=== PATIENT | male | born 1975 | race American Indian/Alaskan Native ===

== ENCOUNTER 2017-10-31 11:23 | Inpatient (IN) | payer MEDICAID, MEDICARE, OTHER ==
[2017-10-31 11:32] VITALS: BMI 26.9
--- NOTE | 2017-10-31 12:03 | ED PDOC ---
Arrival/HPI - General Chief Complaint: Psychiatric Evaluation Time Seen by Provider: 10/31/17 11:56 Historian: Patient - History of Present Illness Narrative History of Present Illness (Text): 10/31/17 11:59 pt p/w + worsening anxiety and stress since unable to obtain his medication for the last 1 month; pt states he usually attends day care program from [facility] but was kicked out of the program last month; pt states he feels pressure and jittery; pt states no fever/chills/sweats, no cp/sob/ palpitations, no abd pain, no n/v, no numbness/tingling, no urinary/bowel changes; pt has been self medicating with street drugs (Marijuana); pt denied loc, no fall/trauma/sick contact, no travel; pt denied other complaints; pt is here for further eval. pt denied SI/HI, pt denied hallucinations - visual/tactile/auditory Time/Duration: < month Symptom Onset: Gradual Symptom Course: Worsening Severity Level: Severe Context: Home (pt states he has places to go home to but occasionally is homeless) Past Medical History - Provider Review Nursing Documentation Reviewed: Yes - Travel History Have you recently traveled outside US w/in the past 3 mons?: No - Past History Past History: No Previous - Infectious Disease Hx of Infectious Diseases: None - Tetanus Immunization Tetanus Immunization: Unknown - Cardiac Hx Hypertension: Yes - Pulmonary Hx Asthma: Yes - Neurological Hx Seizures: Yes (since he was 11 yo) - HEENT Hx HEENT Disorder: No - Renal Hx Renal Disorder: No - Endocrine/Metabolic Hx Endocrine Disorders: No - Hematological/Oncological Hx Cancer: No - Integumentary Hx Dermatological Disorder: No - Musculoskeletal/Rheumatological Hx Musculoskeletal Disorders: No - Gastrointestinal Hx Gastrointestinal Disorders: No - Genitourinary/Gynecological Hx Sexually Transmitted Diseases: No - Psychiatric Hx Anxiety: Yes Hx Bipolar Disorder: Yes Hx Depression: Yes Hx Schizophrenia: Yes Hx Substance Use: Yes - Surgical History Other/Comment: unable to assess due to psychotic behavior - Anesthesia Hx Anesthesia: No Hx Anesthesia Reactions: No Hx Malignant Hyperthermia: No - Suicidal Assessment Feels Threatened In Home Enviroment: No Family/Social History - Physician Review Nursing Documentation Reviewed: Yes Family/Social History: No Known Family HX Smoking Status: Heavy Smoker > 10 Cigarettes Daily Hx Alcohol Use: No Hx Substance Use: Yes Substance used: marijuana Hx Substance Use Treatment: No Allergies/Home Meds Allergies/Adverse Reactions: Allergies No Known Allergies Allergy (Verified 10/31/17 06:53) Home Medications: Home Meds Medication Instructions Recorded Confirmed No Known Home Med 10/31/17 10/31/17 Review of Systems - Review of Systems Constitutional: Normal Eyes: Normal ENT: Normal Respiratory: Normal Cardiovascular: Normal Gastrointestinal: Normal Genitourinary Male: Normal Musculoskeletal: Normal Skin: Normal Neurological: Normal Endocrine: Normal Hemo/Lymphatic: Normal Psychiatric: Anxiety, Depression. absent: Suicidal Ideation Physical Exam Vital Signs Reviewed: Yes Vital Signs Temp Pulse Resp BP Pulse Ox 10/31/17 17:24 83 18 154/75 H 99 10/31/17 15:20 86 18 155/45 H 10/31/17 11:24 98.3 F 117 H 18 155/89 H 98 Temperature: Afebrile Blood Pressure: Hypertensive Pulse: Tachycardic Respiratory Rate: Normal Appearance: Positive for: Well-Appearing, Other (pt is resting in bed, NAD, + anxious, + jitttery appearing, cooperative, alert/awake, GCS = 15, oriented x 3 , follows commands with ease) Pain Distress: None Mental Status: Positive for: Alert and Oriented X 3 - Systems Exam Head: Present: Atraumatic, Normocephalic Pupils: Present: PERRL Extroacular Muscles: Present: EOMI Conjunctiva: Present: Normal Ears: Present: Normal Mouth: Present: Moist Mucous Membranes, Normal Teeth Pharnyx: Present: Normal, Other (no drooling/stridor, no exudate/lesions, uvula/ tongue are midline, no dysphonia) Nose (External): Present: Atraumatic Nose (Internal): Present: Normal Inspection Neck: Present: Normal Range of Motion, Trachea Midline. No: MIDLINE TENDERNESS Respiratory/Chest: Present: Clear to Auscultation, Good Air Exchange, Other ( CTA b/l, no w/r/r, no accessory muscle use, no tachypenia) Cardiovascular: Present: Regular Rate and Rhythm, Normal S1, S2 Abdomen: Present: Normal Bowel Sounds, Other (well nourished male, no focal tenderness, no pool's sign, no mcburney's point tenderness) Back: Present: Normal Inspection. No: Midline Tenderness Upper Extremity: Present: Normal Inspection, Normal ROM, NORMAL PULSES, Neurovascularly Intact, Capillary Refill < 2s, Other (moving all limbs with ease ) Lower Extremity: Present: Normal Inspection, NORMAL PULSES, Normal ROM, Neurovascularly Intact, Capillary Refill < 2 s Neurological: Present: GCS=15, CN II-XII Intact, Speech Normal, Other (NIH stroke scale ~0) Skin: Present: Warm, Normal Color, Other (cap refill < 1sec, no ulcerations, no petechiae) Psychiatric: Present: Alert, Oriented x 3 Medical Decision Making ED Course and Treatment: 10/31/17 12:07 Impression: schizoaffective d/o; severe anxiety, medication non-compliance i have consider all the differential diagnosis regarding pt's chief medical complaints/clinical findings, including but are not limited to: severe anxiety, medication non-compliance A/P: schizoaffective d/o, severe anxiety, mediation non-compliance - labs - ekg - xray - ua - observe - supportive care - crisis/PES eval 10/31/17 17:48 PT IS MEDICALLY CLEARED FOR PSYCH EVAL 3:00pm - PES/crisis evaluated patient, will consult with psychiatry 3:45pm - crisis will admit patient to psych pt is currently stable pt is made aware of his medical results agrees with admission Re-evaluation Time: 16:30 Reassessment Condition: Unchanged - Lab Interpretations Lab Results: 10/31/17 12:50 10/31/17 12:50 Lab Results 10/31/17 12:50: Alcohol, Quantitative < 10 10/31/17 12:50: Salicylates < 1 L, Acetaminophen < 10.0 L 10/31/17 12:50: Urine Opiates Screen Negative, Urine Methadone Screen Negative, Ur Barbiturates Screen Negative, Ur Phencyclidine Scrn Negative, Ur Amphetamines Screen Negative, U Benzodiazepines Scrn Negative, U Oth Cocaine Metabols Negative, U Cannabinoids Screen Negative 10/31/17 12:50: Sodium 143, Potassium 3.9, Chloride 107, Carbon Dioxide 22, Anion Gap 17, BUN 13, Creatinine 0.9, Est GFR ( Amer) > 60, Est GFR (Non- Af Amer) > 60, Random Glucose 104, Calcium 9.5, Total Bilirubin 0.6, AST 38, ALT 39, Alkaline Phosphatase 77, Total Protein 8.2, Albumin 4.2, Globulin 4.0, Albumin/Globulin Ratio 1.1 10/31/17 12:50: Urine Color Yellow, Urine Appearance Clear, Urine pH 6.5, Ur Specific [place] 1.020, Urine Protein Negative, Urine Glucose (UA) Negative, Urine Ketones 15 H, Urine Blood Negative, Urine Nitrate Negative, Urine Bilirubin Small H, Urine Urobilinogen 1.0 H, Ur Leukocyte Esterase Negative 10/31/17 12:50: WBC 8.6 D, RBC 4.38, Hgb 13.3 L, Hct 39.8 L, MCV 90.9, MCH 30.4 , MCHC 33.4, RDW 12.7, Plt Count 210, MPV 9.8, Gran % 53.6, Lymph % (Auto) 37.0 H, [place] % (Auto) 9.0 H, Eos % (Auto) 0.3 L, Baso % (Auto) 0.1, Gran # 4.61, Lymph # 3.2, [place] # 0.8 H, Eos # 0.0, Baso # 0.01 I have reviewed the lab results: Yes Interpretation: All labs normal - RAD Interpretation Narrative RAD Interpretations (Text): 10/31/17 13:44 CHEST X-RAY Dictator : Reny Wiggins MD Report Date : 10/31/2017 13:28:55 IMPRESSION: No active pulmonary disease. 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 Ulcer: No History Surgical Site Infection Following: None - Disposition Have Diagnosis and Disposition been Completed?: Yes Diagnosis: Severe anxiety, Noncompliance with medication regimen Disposition: HOSPITALIZED Disposition Time: 17:30 Patient Plan: Admission Condition: STABLE Referrals: [facility], [Primary Care Provider] - Follow up with primary Forms: Combat Stroke (Divehi)
[2017-10-31 12:56] LABS: BASO # 0.01 K/mm3 (0.0-2.0); BASO % 0.1 % (0.0-3.0); EOS % 0.3 % (1.5-5.0); GRAN # 4.61 (1.4-6.5); GRAN % 53.6 % (50.0-68.0); HEMOGLOBIN 13.3 g/dL (14.0-18.0); LYMPH # 3.2 (1.2-3.4); MEAN CELL VOLUME 90.9 fl (80.0-105.0); MEAN CORPUSCULAR HEMOGLOBIN 30.4 pg (25.0-35.0); MEAN CORPUSCULAR HGB CONC 33.4 g/dl (31.0-37.0); MEAN PLATELET VOLUME 9.8 fl (7.0-11.0); MONO # 0.8 (0.1-0.6); RBC 4.38 10^6/uL (3.5-6.1); RED CELL DISTRIBUTION WIDTH 12.7 % (11.5-14.5); WHITE BLOOD COUNT 8.6 10^3/ul (4.5-11.0)
[2017-10-31 12:57] LABS: PH,URINE 6.5 (4.7-8.0); URINE BILIRUBIN SMALL (NEGATIVE); URINE BLOOD NEGATIVE (NEGATIVE); URINE GLUCOSE (UA) NEGATIVE (NEGATIVE); URINE LEUKOCYTE ESTERASE NEGATIVE Leu/uL (NEGATIVE); URINE NITRATE NEGATIVE (NEGATIVE); URINE PROTEIN NEGATIVE mg/dL (<30 mg/dL)
[2017-10-31 13:00] LABS: URINE APPEARANCE CLEAR (CLEAR); URINE COLOR YELLOW (YELLOW)
[2017-10-31 13:08] LABS: ACETAMINOPHEN < 10.0 ug/ml (10.0-20.0); ALB/GLOB RATIO 1.1 (1.1-1.8); ALBUMIN 4.2 g/dL (3.0-4.8); ALT/SGPT 39 U/L (7-56); AST/SGOT 38 U/L (17-59); BLOOD UREA NITROGEN 13 mg/dL (7-21); CALCIUM 9.5 mg/dL (8.4-10.5); GFR AFRICAN-AMERICAN > 60; GFR NON-AFRICAN AMERICAN > 60; SALICYLATE < 1 mg/dL (2.0-20.0)
[2017-10-31 13:20] LABS: BARBITURATES, UR NEGATIVE (NEGATIVE); BENZODIAZEPINES, UR NEGATIVE (NEGATIVE); OPIATES, UR NEGATIVE (NEGATIVE); PHENCYCLIDINE, UR NEGATIVE (NEGATIVE)
--- NOTE | 2017-10-31 13:30 | RAD ---
HISTORY: COMPARISON: 07/04/2016. TECHNIQUE: Chest PA and lateral FINDINGS: LINES AND TUBES: None. LUNG AND PLEURA: The lungs are well inflated and clear. HEART AND MEDIASTINUM: The heart is not enlarged. The hilar and mediastinal contours are within normal limits. SKELETAL STRUCTURES: The bony structures are within normal limits for the patient's age. VISUALIZED UPPER ABDOMEN: Normal. OTHER FINDINGS: None. IMPRESSION: No active pulmonary disease.
--- NOTE | 2017-10-31 15:46 | CARD ---
APPROVED REPORT EKG Measurement Heart [id number] IN [id number] <Conclusion> Sinus tachycardia Otherwise normal ECG
[2017-10-31 17:52] VITALS: O2SAT 99
[2017-10-31] MEDS: Divalproex 500 mg DR(BID formulation) PO SCH (21:55)
--- NOTE | 2017-11-01 01:36 | PCM.BM ---
Treatment Plan Problems - Problems identified on initial assessmt Problem 1 Date Initiated: 10/31/17 Time Initiated: 20:00 Assessment reference: NA Treatment assets and liabiliti Patient Assests: cooperative, ADL independent, negotiates basic needs, cognitively intact Patient Liabilities: financial problems, poor support system, relationship conflicts, substance abuse, medical problems - Milieu Protocol Maintain good personal hygiene: daily Encourage regular showers, daily Remind patient to perform daily oral care, daily Assist patient to perform ADL's Conduct patient checks and document Observation sheet: Q15 minutes Maintain personal safety: daily Educate patient to report safety concerns to staff, daily Monitor environment for contraband/sharps Medication safety: Monitor for expected outcome, potential side effects: daily, Assess barriers to learning: daily, Assess readiness for medication education: daily Family Contact Family involvement: Family/SO is involved Family contact: Patient agrees to contact
[2017-11-01] MEDS: Divalproex 500 mg DR(BID formulation) PO SCH ×3 (05:08→21:35)
[2017-11-01 08:51] LABS: BLOOD UREA NITROGEN 16 mg/dL (7-21); CALCIUM 8.8 mg/dL (8.4-10.5); GFR AFRICAN-AMERICAN > 60; GFR NON-AFRICAN AMERICAN > 60; HDL CHOLESTEROL 37 mg/dL (29-60)
[2017-11-01 08:58] LABS: LDL CHOLESTEROL 87 mg/dL (0-129)
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
[2017-11-01 12:05] LABS: DILANTIN (PHENYTOIN) 12 ug/mL (10-20)
[2017-11-01 12:07] LABS: VALPROIC ACID 48 ug/mL (50.0-100.0)
--- NOTE | 2017-11-01 17:13 | CP.PCM.CON ---
<MauryHaroldo bridges - Last Filed: 11/01/17 16:34> History of Present Illness - History of Present Illness History of Present Illness: IM Consult Note for Hospitalist Service Consulted for Medical Management This a 41 yo AA M with PMH of Asthma, Anxiety, Bipolar disorder, Depression, HTN , Schizophrenia, and seizure disorder (on dilantin and depakote) who [place] [facility] [place] of worsening stress and anxiety, and reportedly unable to obtain his meds for ~1 month. Per prior charting, pt also has history of substance abuse, xerosis, psoriasis, and frequently poor compliance with medications and follow up. ROS/HPI and physical exam limited due to patient being non-cooperative with exam and interview (lying sideways in bed, reacts to shaking away but refuses to roll over, respond to staff questioning, or follow commands). Yesterday AM, patient was seen for witnessed seizure at [facility] ED, and told them he was out of his medications. He was discharged with Dilantin and told to follow up in 2 days at the clinic or with his PMD. He later presented [place] [facility] for [place]/anxiety, but denied new seizures, or SI/HI. This AM , was witnessed walking and talking in Psych unit, ate breakfast without issue. As per prior charting, uncooperativeness and refusal to speak with interviewing team or participate in physical exam is not uncommon for this patient. PMH: as above PSH: unknown, patient refuses to answer Fam Hx: unknown SHx: has admitted to regularly self-medicating with marijuana previously, refuses to answer during this interview; as per ED note admits tobacco use ( smoking > 1/2 ppd), but denies alcohol use PMD: Unknown physician in [facility] Review of Systems - Review of Systems Systems not reviewed;Unavailable: Uncooperative Past Patient History - Infectious Disease Hx of Infectious Diseases: None - Tetanus Immunizations Tetanus Immunization: Unknown - Past Social History Smoking Status: Heavy Smoker > 10 Cigarettes Daily - CARDIAC Hx Hypertension: Yes - PULMONARY Hx Asthma: Yes - NEUROLOGICAL Hx Seizures: Yes (since he was 11 yo) - HEENT Hx HEENT Problems: No - RENAL Hx Chronic Kidney Disease: No - ENDOCRINE/METABOLIC Hx Endocrine Disorders: No - HEMATOLOGICAL/ONCOLOGICAL Hx Cancer: No - INTEGUMENTARY Hx Dermatological Problems: No - MUSCULOSKELETAL/RHEUMATOLOGICAL Hx Musculoskeletal Disorders: No - GASTROINTESTINAL Hx Gastrointestinal Disorders: No - GENITOURINARY/GYNECOLOGICAL Hx Sexually Transmitted Disorders: No - PSYCHIATRIC Hx Substance Use: Yes (marijuana) - SURGICAL HISTORY Other/Comment: unable to assess due to psychotic behavior - ANESTHESIA Hx Anesthesia: No Hx Anesthesia Reactions: No Hx Malignant Hyperthermia: No Meds Allergies/Adverse Reactions: Allergies Allergy/AdvReac Type Severity Reaction Status Date / Time No Known Allergies Allergy Verified 10/31/17 20:52 - Medications Medications: Current Medications Acetaminophen (Tylenol 325mg Tab) 650 mg PO Q6 PRN PRN Reason: Pain, Mild (1-3) Clonazepam (Klonopin) 1 mg PO AMHS [facility]CI PRN Reason: Protocol Last Admin: 11/01/17 09:24 Dose: 1 mg Divalproex Sodium (Depakote Dr(*Bid*)) 500 mg PO AMHS [facility]CI PRN Reason: Protocol Last Admin: 11/01/17 09:23 Dose: 500 mg Nicotine (Nicoderm Cq) 1 patch TD DAILY [facility] Phenytoin Sodium (Dilantin) 100 mg PO TID [facility] Last Admin: 11/01/17 09:24 Dose: 100 mg Risperidone (Risperdal Tab) 2 mg PO AMHS [facility] Physical Exam - Constitutional Appears: No Acute Distress Additional comments: Limited due to patient non-cooperative with history or exam - Head Exam Head Exam: ATRAUMATIC - Eye Exam Eye Exam: absent: Conjunctival injection, Scleral icterus - ENT Exam ENT Exam: Mucous Membranes Moist - Respiratory Exam Respiratory Exam: Clear to Auscultation Bilateral, NORMAL BREATHING PATTERN. absent: Accessory Muscle Use - Cardiovascular Exam Cardiovascular Exam: REGULAR RHYTHM, RRR, +S1, +S2. absent: Bradycardia, Tachycardia, Irregular Rhythm - GI/Abdominal Exam GI & Abdominal Exam: Soft. absent: Distended, Firm, Rigid, Tenderness - Extremities Exam Extremities exam: Positive for: normal inspection - Neurological Exam Additional comments: previously seen ambulating in Psych unit without difficulty, motor grossly intact and equal in extremities at that time. - Psychiatric Exam Additional comments: unable to assess, pt non-cooperative with exam - Skin Skin Exam: Dry, Intact, Normal Color, Warm Results - Vital Signs Recent Vital Signs: Last Vital Signs Temp 97.7 F 11/01/17 07:43 Pulse 64 11/01/17 07:43 Resp 20 11/01/17 07:43 BP 114/69 11/01/17 07:43 Pulse Ox 99 10/31/17 17:24 - Labs Result Diagrams: 10/31/17 12:50 11/01/17 07:30 Labs: Laboratory Results - last 24 hr 11/01/17 11/01/17 07:30 11:40 Sodium 141 Potassium 3.8 Chloride 109 H Carbon Dioxide 23 Anion Gap 13 BUN 16 Creatinine 0.9 Est GFR ( Amer) > 60 Est GFR (Non-Af Amer) > 60 Random Glucose 94 Calcium 8.8 Triglycerides 58 Cholesterol 153 LDL Cholesterol Direct 87 HDL Cholesterol 37 Phenytoin 12 Valproic Acid 48 L Assessment & Plan - Assessment and Plan (Free Text) Assessment: This a 41 yo AA M with PMH of Asthma, Anxiety, Bipolar disorder, Depression, HTN , Schizophrenia, and seizure disorder (on dilantin and depakote) who presented [place] [facility] [place] complaint of worsening stress and anxiety, and reportedly unable to obtain his meds for ~1 month. Non-cooperative with exam. Plan: 1) Stress/Anxiety/Schizoaffective -defer to psych for management 2) HTN not on BP control -hypertensive to 150's/80's on admission, but since admission to psych unit and starting on psych meds, BP improved to 114/69, so likely stress component to elevated BP on presentation -no noted to be on any antihypertensives at home -no intervention indicated at this time 3) Hx Asthma -no respiratory distress noted, satting well on room air -no intervention indicated at this time -if patient experiences a flare-up, can add PRN albuterol inhaler 4) Seizure disorder -dilantin level wnl, low depakote -continue both as previously ordered 5) Hx of psoriasis -no reported complaints of this on admission -if recurs, would recommend clotrimazole 1% cream BID (used with success with this pt previously) Dispo: Psych inpt FEN: Heart-healthy diet Consult: IM for medical management (Psych is primary) Ppx: Ambulation for DVT At this time, patient is medically stable, will sign off. Please reconsult as necessary. Patient seen, reviewed, and discussed with attending, Dr. Lindsay <Bulmaro Lindsay - Last Filed: 11/01/17 18:21> Meds - Medications Medications: Current Medications Acetaminophen (Tylenol 325mg Tab) 650 mg PO Q6 PRN PRN Reason: Pain, Mild (1-3) Clonazepam (Klonopin) 1 mg PO AMHS [facility]ANCI PRN Reason: Protocol Last Admin: 11/01/17 09:24 Dose: 1 mg Divalproex Sodium (Depakote Dr(*Bid*)) 500 mg PO AMHS [facility] PRN Reason: Protocol Last Admin: 11/01/17 09:23 Dose: 500 mg Nicotine (Nicoderm Cq) 1 patch TD DAILY [facility] Phenytoin Sodium (Dilantin) 100 mg PO TID [facility] Last Admin: 11/01/17 16:45 Dose: Not Given Risperidone (Risperdal Tab) 2 mg PO AMHS [facility] Results - Vital Signs Recent Vital Signs: Last Vital Signs Temp 97.7 F 11/01/17 07:43 Pulse 64 11/01/17 07:43 Resp 20 11/01/17 07:43 BP 114/69 11/01/17 07:43 Pulse Ox 99 10/31/17 17:24 - Labs Result Diagrams: 10/31/17 12:50 11/01/17 07:30 Labs: Laboratory Results - last 24 hr 11/01/17 11/01/17 07:30 11:40 Sodium 141 Potassium 3.8 Chloride 109 H Carbon Dioxide 23 Anion Gap 13 BUN 16 Creatinine 0.9 Est GFR ( Amer) > 60 Est GFR (Non-Af Amer) > 60 Random Glucose 94 Calcium 8.8 Triglycerides 58 Cholesterol 153 LDL Cholesterol Direct 87 HDL Cholesterol 37 Phenytoin 12 Valproic Acid 48 L Attending/Attestation - Attestation I have personally seen and examined this patient.: Yes I have fully participated in the care of the patient.: Yes I have reviewed all pertinent clinical information: Yes Notes (Text): 11/01/17 18:17 Attending note: Patient seen and examined with resident in Psych floor. Patient is a 41 year old male with PMH of Asthma, Anxiety, Bipolar disorder, Depression, HTN, Schizophrenia, and seizure disorder (on dilantin and depakote) who [place] [facility] [place] complaint of worsening stress and anxiety. Currently denies any complaints. Labs reviewed. smoker: smoking cessation is strongly advised. on nicoderm patch. seizure disorder. continue keppra. HTN: currently BP is acceptable not on meds. Dietary education. Patient is medically stable. Please reconsult as needed.
[2017-11-02] MEDS: Divalproex 500 mg DR(BID formulation) PO SCH ×2 (09:24→21:15)
--- NOTE | 2017-11-02 14:46 | PCM.PYCHPN ---
Psychiatric Progress Note - Psychiatric Progress Note Patient seen today, length of contact: 30min Patient Chief Complaint: "when I will be discharged?" Problems Identified/Issues Discussed: Suicide/ homicide prevention, past psychiatric h/o, current psychiatric symptoms , medical problems, risk/benefits and alternatives of medications, medications compliance, coping strategies, substance abuse h/o, relapse prevention, importance of follow up with psychiatrist and therapist, discharge plan. Medical Problems: pt denied any medical issues Diagnostic Results: 10/31/17 12:50 11/01/17 07:30 Lab Results 11/01/17 11:40: Phenytoin 12, Valproic Acid 48 L 11/01/17 07:30: Hemoglobin A1c 6.0 11/01/17 07:30: Sodium 141, Potassium 3.8, Chloride 109 H, Carbon Dioxide 23, Anion Gap 13, BUN 16, Creatinine 0.9, Est GFR ( Amer) > 60, Est GFR (Non- Af Amer) > 60, Random Glucose 94, Calcium 8.8, Triglycerides 58, Cholesterol 153 , LDL Cholesterol Direct 87, HDL Cholesterol 37 10/31/17 12:50: Alcohol, Quantitative < 10 10/31/17 12:50: Salicylates < 1 L, Acetaminophen < 10.0 L 10/31/17 12:50: Urine Opiates Screen Negative, Urine Methadone Screen Negative, Ur Barbiturates Screen Negative, Ur Phencyclidine Scrn Negative, Ur Amphetamines Screen Negative, U Benzodiazepines Scrn Negative, U Oth Cocaine Metabols Negative, U Cannabinoids Screen Negative 10/31/17 12:50: Sodium 143, Potassium 3.9, Chloride 107, Carbon Dioxide 22, Anion Gap 17, BUN 13, Creatinine 0.9, Est GFR ( Amer) > 60, Est GFR (Non- Af Amer) > 60, Random Glucose 104, Calcium 9.5, Total Bilirubin 0.6, AST 38, ALT 39, Alkaline Phosphatase 77, Total Protein 8.2, Albumin 4.2, Globulin 4.0, Albumin/Globulin Ratio 1.1 10/31/17 12:50: Urine Color Yellow, Urine Appearance Clear, Urine pH 6.5, Ur Specific [place] 1.020, Urine Protein Negative, Urine Glucose (UA) Negative, Urine Ketones 15 H, Urine Blood Negative, Urine Nitrate Negative, Urine Bilirubin Small H, Urine Urobilinogen 1.0 H, Ur Leukocyte Esterase Negative 10/31/17 12:50: WBC 8.6 D, RBC 4.38, Hgb 13.3 L, Hct 39.8 L, MCV 90.9, MCH 30.4 , MCHC 33.4, RDW 12.7, Plt Count 210, MPV 9.8, Gran % 53.6, Lymph % (Auto) 37.0 H, Crawford % (Auto) 9.0 H, Eos % (Auto) 0.3 L, Baso % (Auto) 0.1, Gran # 4.61, Lymph # 3.2, Crawford # 0.8 H, Eos # 0.0, Baso # 0.01 10/31/17 12:50 11/01/17 07:30 Lab Results 11/01/17 11:40: Phenytoin 12, Valproic Acid 48 L 11/01/17 07:30: Hemoglobin A1c 6.0 11/01/17 07:30: Sodium 141, Potassium 3.8, Chloride 109 H, Carbon Dioxide 23, Anion Gap 13, BUN 16, Creatinine 0.9, Est GFR ( Amer) > 60, Est GFR (Non- Af Amer) > 60, Random Glucose 94, Calcium 8.8, Triglycerides 58, Cholesterol 153 , LDL Cholesterol Direct 87, HDL Cholesterol 37 10/31/17 12:50: Alcohol, Quantitative < 10 10/31/17 12:50: Salicylates < 1 L, Acetaminophen < 10.0 L 10/31/17 12:50: Urine Opiates Screen Negative, Urine Methadone Screen Negative, Ur Barbiturates Screen Negative, Ur Phencyclidine Scrn Negative, Ur Amphetamines Screen Negative, U Benzodiazepines Scrn Negative, U Oth Cocaine Metabols Negative, U Cannabinoids Screen Negative 10/31/17 12:50: Sodium 143, Potassium 3.9, Chloride 107, Carbon Dioxide 22, Anion Gap 17, BUN 13, Creatinine 0.9, Est GFR ( Amer) > 60, Est GFR (Non- Af Amer) > 60, Random Glucose 104, Calcium 9.5, Total Bilirubin 0.6, AST 38, ALT 39, Alkaline Phosphatase 77, Total Protein 8.2, Albumin 4.2, Globulin 4.0, Albumin/Globulin Ratio 1.1 10/31/17 12:50: Urine Color Yellow, Urine Appearance Clear, Urine pH 6.5, Ur Specific [place] 1.020, Urine Protein Negative, Urine Glucose (UA) Negative, Urine Ketones 15 H, Urine Blood Negative, Urine Nitrate Negative, Urine Bilirubin Small H, Urine Urobilinogen 1.0 H, Ur Leukocyte Esterase Negative 10/31/17 12:50: WBC 8.6 D, RBC 4.38, Hgb 13.3 L, Hct 39.8 L, MCV 90.9, MCH 30.4 , MCHC 33.4, RDW 12.7, Plt Count 210, MPV 9.8, Gran % 53.6, Lymph % (Auto) 37.0 H, Crawford % (Auto) 9.0 H, Eos % (Auto) 0.3 L, Baso % (Auto) 0.1, Gran # 4.61, Lymph # 3.2, Crawford # 0.8 H, Eos # 0.0, Baso # 0.01 DSM 5 Symptoms Update: As per assessment: Patient is a single 41 year old -Americanmale with a long history of Schizoaffective disorder, numerous hospitalizations including [place], poor outpatient adherence as well as poor compliance with medications who presented to our ED with symptoms of anxiety and "feeling stressed". Patient was noted to be disorganized and signed himself in for further stabilization. as per report from , pt was completely refused to engage in an interview with her. pt was seen at the treatment team meeting, pt is very familiar to this unit from multiple previous psychiatric admissions. Pt presented with acceptable personal hygiene, tp seems gain some weight, looks healthy to compare to the previous admissions. acceptable ADLs. pt was not able to provide any information besides that he staid in the [facility] for the past 1year and one month, pt said he was discharged to the boarding home at the [place] but he did not like it there. Pt said he brought himself to the hospital because he has nowhere to go. but based on ED evaluation pt was psychotic, was not taking his meds. pt obviously has difficulties to concentrate, stay focused, was keep repeating the same question over and over again. "when I will be discharged?" pt said he smokes about a pack a day, refused to have nicotine patch. Pt has some resting tremor on RUE, no rigidity. as per staff pt seems to be calm, no behavioral issues. Impression: schizoaffective disorder marijuana abuse Medication Change: No (continued) Medical Record Reviewed: Yes Consults ordered or reviewed: medical consult appreciated Mental Status Examination - Cognitive Function Orientation: Person, Place Memory: Impaired (chronic) Attention: Poor Concentration: Poor Association: WNL Fund of Knowledge: WNL - Mood Mood: Neutral - Affect Affect: Constricted - Speech Speech: Slurred - Formal Thought Process Formal Thought Process: Other (residual symtpoms, disorganized thoughts) - Suicidal Ideation Suicidal Ideation: No - Homicidal Ideation Homicidal Ideation: No Goal/Treatment Plan - Goal/Treatment Plan Need for Continued Stay: Remain at risks for inpatient hospitalization, Severe depression anxiety, Discharge may exacerbated symptoms, Failed transitioning, Severe functional impairment Progress Toward Problem(s) and Goals/Treatment Plan: Milieu/structure/supportive therapy Medical consult appreciated, see medical team note for more detailed info Depakote 500 mg twice a day for mood stabilization Klonopin 1 mg twice a day for anxiety Risperdal 2 mg twice a day for psychosis Dilantin 100 mg 3 times a day for seizures Will add Cogentin because patient had some resting tremor in right upper extremity SW consultation for discharge plan and social issues Med management (specify the name, doses, plan to titrate or wean it off) Family involvement Follow up on labs Will monitor closely Pt was educated about risk/benefits and alternatives of medications, coping strategies (safety plan, suicide prevention), relapse prevention, importance of follow up with psychiatrist and therapist, stay away from drugs/alcohol/smoking Estimated Date of D/C: 11/06/17
[2017-11-03] MEDS: Divalproex 500 mg DR(BID formulation) PO SCH ×2 (09:33→21:31)
--- NOTE | 2017-11-03 14:43 | PCM.PYCHPN ---
Psychiatric Progress Note - Psychiatric Progress Note Patient seen today, length of contact: 30min Patient Chief Complaint: "when I will be discharged?" Problems Identified/Issues Discussed: Suicide/ homicide prevention, past psychiatric h/o, current psychiatric symptoms , medical problems, risk/benefits and alternatives of medications, medications compliance, coping strategies, substance abuse h/o, relapse prevention, importance of follow up with psychiatrist and therapist, discharge plan. Medical Problems: pt denied any medical issues Diagnostic Results: 10/31/17 12:50 11/01/17 07:30 Lab Results 11/01/17 11:40: Phenytoin 12, Valproic Acid 48 L 11/01/17 07:30: Hemoglobin A1c 6.0 11/01/17 07:30: Sodium 141, Potassium 3.8, Chloride 109 H, Carbon Dioxide 23, Anion Gap 13, BUN 16, Creatinine 0.9, Est GFR ( Amer) > 60, Est GFR (Non- Af Amer) > 60, Random Glucose 94, Calcium 8.8, Triglycerides 58, Cholesterol 153 , LDL Cholesterol Direct 87, HDL Cholesterol 37 10/31/17 12:50: Alcohol, Quantitative < 10 10/31/17 12:50: Salicylates < 1 L, Acetaminophen < 10.0 L 10/31/17 12:50: Urine Opiates Screen Negative, Urine Methadone Screen Negative, Ur Barbiturates Screen Negative, Ur Phencyclidine Scrn Negative, Ur Amphetamines Screen Negative, U Benzodiazepines Scrn Negative, U Oth Cocaine Metabols Negative, U Cannabinoids Screen Negative 10/31/17 12:50: Sodium 143, Potassium 3.9, Chloride 107, Carbon Dioxide 22, Anion Gap 17, BUN 13, Creatinine 0.9, Est GFR ( Amer) > 60, Est GFR (Non- Af Amer) > 60, Random Glucose 104, Calcium 9.5, Total Bilirubin 0.6, AST 38, ALT 39, Alkaline Phosphatase 77, Total Protein 8.2, Albumin 4.2, Globulin 4.0, Albumin/Globulin Ratio 1.1 10/31/17 12:50: Urine Color Yellow, Urine Appearance Clear, Urine pH 6.5, Ur Specific [place] 1.020, Urine Protein Negative, Urine Glucose (UA) Negative, Urine Ketones 15 H, Urine Blood Negative, Urine Nitrate Negative, Urine Bilirubin Small H, Urine Urobilinogen 1.0 H, Ur Leukocyte Esterase Negative 10/31/17 12:50: WBC 8.6 D, RBC 4.38, Hgb 13.3 L, Hct 39.8 L, MCV 90.9, MCH 30.4 , MCHC 33.4, RDW 12.7, Plt Count 210, MPV 9.8, Gran % 53.6, Lymph % (Auto) 37.0 H, Josephine % (Auto) 9.0 H, Eos % (Auto) 0.3 L, Baso % (Auto) 0.1, Gran # 4.61, Lymph # 3.2, Josephine # 0.8 H, Eos # 0.0, Baso # 0.01 10/31/17 12:50 11/01/17 07:30 Lab Results 11/01/17 11:40: Phenytoin 12, Valproic Acid 48 L 11/01/17 07:30: Hemoglobin A1c 6.0 11/01/17 07:30: Sodium 141, Potassium 3.8, Chloride 109 H, Carbon Dioxide 23, Anion Gap 13, BUN 16, Creatinine 0.9, Est GFR ( Amer) > 60, Est GFR (Non- Af Amer) > 60, Random Glucose 94, Calcium 8.8, Triglycerides 58, Cholesterol 153 , LDL Cholesterol Direct 87, HDL Cholesterol 37 10/31/17 12:50: Alcohol, Quantitative < 10 10/31/17 12:50: Salicylates < 1 L, Acetaminophen < 10.0 L 10/31/17 12:50: Urine Opiates Screen Negative, Urine Methadone Screen Negative, Ur Barbiturates Screen Negative, Ur Phencyclidine Scrn Negative, Ur Amphetamines Screen Negative, U Benzodiazepines Scrn Negative, U Oth Cocaine Metabols Negative, U Cannabinoids Screen Negative 10/31/17 12:50: Sodium 143, Potassium 3.9, Chloride 107, Carbon Dioxide 22, Anion Gap 17, BUN 13, Creatinine 0.9, Est GFR ( Amer) > 60, Est GFR (Non- Af Amer) > 60, Random Glucose 104, Calcium 9.5, Total Bilirubin 0.6, AST 38, ALT 39, Alkaline Phosphatase 77, Total Protein 8.2, Albumin 4.2, Globulin 4.0, Albumin/Globulin Ratio 1.1 10/31/17 12:50: Urine Color Yellow, Urine Appearance Clear, Urine pH 6.5, Ur Specific [place] 1.020, Urine Protein Negative, Urine Glucose (UA) Negative, Urine Ketones 15 H, Urine Blood Negative, Urine Nitrate Negative, Urine Bilirubin Small H, Urine Urobilinogen 1.0 H, Ur Leukocyte Esterase Negative 10/31/17 12:50: WBC 8.6 D, RBC 4.38, Hgb 13.3 L, Hct 39.8 L, MCV 90.9, MCH 30.4 , MCHC 33.4, RDW 12.7, Plt Count 210, MPV 9.8, Gran % 53.6, Lymph % (Auto) 37.0 H, Josephine % (Auto) 9.0 H, Eos % (Auto) 0.3 L, Baso % (Auto) 0.1, Gran # 4.61, Lymph # 3.2, Josephine # 0.8 H, Eos # 0.0, Baso # 0.01 DSM 5 Symptoms Update: Patient is a single 41 year old -Americanmale with a long history of Schizoaffective disorder, numerous hospitalizations including [facility], poor outpatient adherence as well as poor compliance with medications who presented to our ED with symptoms of anxiety and "feeling stressed". Patient was noted to be disorganized and signed himself in for further stabilization. as per report from , pt was completely refused to engage in an interview with her. pt was seen at the treatment team meeting room, pt presented relatively well, there is some cognitive limitation most likely due to chronic mental illness and substance abuse h/o. pt was slow with responses, pt obviously has difficulties to concentrate, stay focused, was keep repeating the same question over and over again. "when I will be discharged?" Pt has some resting tremor on RUE, no rigidity. as per staff pt seems to be calm, no behavioral issues. Impression: schizoaffective disorder marijuana abuse Medication Change: No (continued) Medical Record Reviewed: Yes Mental Status Examination - Cognitive Function Orientation: Person, Place Memory: Impaired (chronic) Attention: Poor Concentration: Poor Association: WNL Fund of Knowledge: WNL - Mood Mood: Neutral - Affect Affect: Constricted - Speech Speech: Slurred - Formal Thought Process Formal Thought Process: Other (residual symtpoms, disorganized thoughts) - Suicidal Ideation Suicidal Ideation: No - Homicidal Ideation Homicidal Ideation: No Goal/Treatment Plan - Goal/Treatment Plan Need for Continued Stay: Remain at risks for inpatient hospitalization, Severe depression anxiety, Discharge may exacerbated symptoms, Failed transitioning, Severe functional impairment Progress Toward Problem(s) and Goals/Treatment Plan: Milieu/structure/supportive therapy Medical consult appreciated, see medical team note for more detailed info Depakote 500 mg twice a day for mood stabilization Klonopin 1 mg twice a day for anxiety Risperdal 2 mg twice a day for psychosis Dilantin 100 mg 3 times a day for seizures Cogentin because patient had some resting tremor in right upper extremity SW consultation for discharge plan and social issues Med management (specify the name, doses, plan to titrate or wean it off) Family involvement Follow up on labs Will monitor closely Pt was educated about risk/benefits and alternatives of medications, coping strategies (safety plan, suicide prevention), relapse prevention, importance of follow up with psychiatrist and therapist, stay away from drugs/alcohol/smoking Estimated Date of D/C: 11/06/17
--- NOTE | 2017-11-03 16:26 | PCM.BM ---
Treatment Plan Problems - Problems identified on initial assessmt Problem 1 Date Initiated: 10/31/17 Time Initiated: 20:00 Assessment reference: NA INEFFECTIVE COPING SKILLS Date Initiated: 11/03/17 Time Initiated: 15:00 Assessment reference: NA Status: Active Priority: 1 NON ADHERENCE MEDICATION Date Initiated: 11/03/17 Time Initiated: 15:00 Assessment reference: NA Status: Active Priority: 2 Treatment assets and liabiliti Patient Assests: cooperative, ADL independent, negotiates basic needs, cognitively intact Patient Liabilities: live alone, financial problems, poor support system, relationship conflicts, substance abuse, medical problems - Milieu Protocol Maintain good personal hygiene: daily Encourage regular showers, daily Remind patient to perform daily oral care, daily Assist patient to perform ADL's Conduct patient checks and document Observation sheet: Q15 minutes Maintain personal safety: daily Educate patient to report safety concerns to staff, daily Monitor environment for contraband/sharps Medication safety: Monitor for expected outcome, potential side effects: daily, Assess barriers to learning: daily, Assess readiness for medication education: daily Milieu Narrative: Milieu/structure/supportive therapy Medical consult appreciated, see medical team note for more detailed info Depakote 500 mg twice a day for mood stabilization Klonopin 1 mg twice a day for anxiety Risperdal 2 mg twice a day for psychosis Dilantin 100 mg 3 times a day for seizures Cogentin because patient had some resting tremor in right upper extremity SW consultation for discharge plan and social issues Med management (specify the name, doses, plan to titrate or wean it off) Family involvement Follow up on labs Will monitor closely Pt was educated about risk/benefits and alternatives of medications, coping strategies (safety plan, suicide prevention), relapse prevention, importance of follow up with psychiatrist and therapist, stay away from drugs/alcohol/smoking Family Contact Family involvement: No known Family/SO Family contact: Patient agrees to contact - Goals for Treatment Patient goals for treatment: "I want to get into a new boarding home." Discharge/Continuing Care - Education Needs Education Needs: Patient Medication, Patient Diagnosis/Disease Process, Patient Coping Skills, Patient Placement options, Patient Community resources, Patient Activities of Daily Living, Patient Nutrition, Patient Health Practices/Safety, Patient Personal Hygiene/Grooming, Patient Aftercare Safety Plan - Discharge Discharge Criteria: Free of Suicidal thoughts, Free of paranoid thoughts, Free of agitation, Normal sleep pattern, Ability to care for self, No longer exhibiting s/s of withdrawal, Reduction of target symptoms Discharge to:: Skilled Nursing, Alf - Treatment Team Participation Patient/Family/SO Statement: Milieu/structure/supportive therapy Medical consult appreciated, see medical team note for more detailed info Depakote 500 mg twice a day for mood stabilization Klonopin 1 mg twice a day for anxiety Risperdal 2 mg twice a day for psychosis Dilantin 100 mg 3 times a day for seizures Cogentin because patient had some resting tremor in right upper extremity SW consultation for discharge plan and social issues Med management (specify the name, doses, plan to titrate or wean it off) Family involvement Follow up on labs Will monitor closely Pt was educated about risk/benefits and alternatives of medications, coping strategies (safety plan, suicide prevention), relapse prevention, importance of follow up with psychiatrist and therapist, stay away from drugs/alcohol/smoking
[2017-11-04] MEDS: Divalproex 500 mg DR(BID formulation) PO SCH ×2 (09:22→21:55)
--- NOTE | 2017-11-04 16:11 | PCM.PYCHPN ---
Psychiatric Progress Note - Psychiatric Progress Note Patient seen today, length of contact: 30min Patient Chief Complaint: "I am alright..' Problems Identified/Issues Discussed: Suicide/ homicide prevention, past psychiatric h/o, current psychiatric symptoms , medical problems, risk/benefits and alternatives of medications, medications compliance, coping strategies, substance abuse h/o, relapse prevention, importance of follow up with psychiatrist and therapist, discharge plan. Medical Problems: pt denied any medical issues Diagnostic Results: 10/31/17 12:50 11/01/17 07:30 Lab Results 11/01/17 11:40: Phenytoin 12, Valproic Acid 48 L 11/01/17 07:30: Hemoglobin A1c 6.0 11/01/17 07:30: Sodium 141, Potassium 3.8, Chloride 109 H, Carbon Dioxide 23, Anion Gap 13, BUN 16, Creatinine 0.9, Est GFR ( Amer) > 60, Est GFR (Non- Af Amer) > 60, Random Glucose 94, Calcium 8.8, Triglycerides 58, Cholesterol 153 , LDL Cholesterol Direct 87, HDL Cholesterol 37 10/31/17 12:50: Alcohol, Quantitative < 10 10/31/17 12:50: Salicylates < 1 L, Acetaminophen < 10.0 L 10/31/17 12:50: Urine Opiates Screen Negative, Urine Methadone Screen Negative, Ur Barbiturates Screen Negative, Ur Phencyclidine Scrn Negative, Ur Amphetamines Screen Negative, U Benzodiazepines Scrn Negative, U Oth Cocaine Metabols Negative, U Cannabinoids Screen Negative 10/31/17 12:50: Sodium 143, Potassium 3.9, Chloride 107, Carbon Dioxide 22, Anion Gap 17, BUN 13, Creatinine 0.9, Est GFR ( Amer) > 60, Est GFR (Non- Af Amer) > 60, Random Glucose 104, Calcium 9.5, Total Bilirubin 0.6, AST 38, ALT 39, Alkaline Phosphatase 77, Total Protein 8.2, Albumin 4.2, Globulin 4.0, Albumin/Globulin Ratio 1.1 10/31/17 12:50: Urine Color Yellow, Urine Appearance Clear, Urine pH 6.5, Ur Specific [place] 1.020, Urine Protein Negative, Urine Glucose (UA) Negative, Urine Ketones 15 H, Urine Blood Negative, Urine Nitrate Negative, Urine Bilirubin Small H, Urine Urobilinogen 1.0 H, Ur Leukocyte Esterase Negative 10/31/17 12:50: WBC 8.6 D, RBC 4.38, Hgb 13.3 L, Hct 39.8 L, MCV 90.9, MCH 30.4 , MCHC 33.4, RDW 12.7, Plt Count 210, MPV 9.8, Gran % 53.6, Lymph % (Auto) 37.0 H, [place] % (Auto) 9.0 H, Eos % (Auto) 0.3 L, Baso % (Auto) 0.1, Gran # 4.61, Lymph # 3.2, [place] # 0.8 H, Eos # 0.0, Baso # 0.01 10/31/17 12:50 11/01/17 07:30 Lab Results 11/01/17 11:40: Phenytoin 12, Valproic Acid 48 L 11/01/17 07:30: Hemoglobin A1c 6.0 11/01/17 07:30: Sodium 141, Potassium 3.8, Chloride 109 H, Carbon Dioxide 23, Anion Gap 13, BUN 16, Creatinine 0.9, Est GFR ( Amer) > 60, Est GFR (Non- Af Amer) > 60, Random Glucose 94, Calcium 8.8, Triglycerides 58, Cholesterol 153 , LDL Cholesterol Direct 87, HDL Cholesterol 37 10/31/17 12:50: Alcohol, Quantitative < 10 10/31/17 12:50: Salicylates < 1 L, Acetaminophen < 10.0 L 10/31/17 12:50: Urine Opiates Screen Negative, Urine Methadone Screen Negative, Ur Barbiturates Screen Negative, Ur Phencyclidine Scrn Negative, Ur Amphetamines Screen Negative, U Benzodiazepines Scrn Negative, U Oth Cocaine Metabols Negative, U Cannabinoids Screen Negative 10/31/17 12:50: Sodium 143, Potassium 3.9, Chloride 107, Carbon Dioxide 22, Anion Gap 17, BUN 13, Creatinine 0.9, Est GFR ( Amer) > 60, Est GFR (Non- Af Amer) > 60, Random Glucose 104, Calcium 9.5, Total Bilirubin 0.6, AST 38, ALT 39, Alkaline Phosphatase 77, Total Protein 8.2, Albumin 4.2, Globulin 4.0, Albumin/Globulin Ratio 1.1 10/31/17 12:50: Urine Color Yellow, Urine Appearance Clear, Urine pH 6.5, Ur Specific [place] 1.020, Urine Protein Negative, Urine Glucose (UA) Negative, Urine Ketones 15 H, Urine Blood Negative, Urine Nitrate Negative, Urine Bilirubin Small H, Urine Urobilinogen 1.0 H, Ur Leukocyte Esterase Negative 10/31/17 12:50: WBC 8.6 D, RBC 4.38, Hgb 13.3 L, Hct 39.8 L, MCV 90.9, MCH 30.4 , MCHC 33.4, RDW 12.7, Plt Count 210, MPV 9.8, Gran % 53.6, Lymph % (Auto) 37.0 H, [place] % (Auto) 9.0 H, Eos % (Auto) 0.3 L, Baso % (Auto) 0.1, Gran # 4.61, Lymph # 3.2, [place] # 0.8 H, Eos # 0.0, Baso # 0.01 DSM 5 Symptoms Update: Patient is a single 41 year old -Americanmale with a long history of Schizoaffective disorder, numerous hospitalizations including [facility], poor outpatient adherence as well as poor compliance with medications who presented to our ED with symptoms of anxiety and "feeling stressed". Patient was noted to be disorganized and signed himself in for further stabilization. as per report from , pt was completely refused to engage in an interview with her. pt was seen in his room, pt presented relatively well, there is some cognitive limitation most likely due to chronic mental illness and substance abuse h/o, for example when pt was asked how does he feel today, pt starred at this keno writer for a few seconds .."wha?", then after this keno writer repeated the question pt said after a few seconds "I am alright". pt was slow with responses, pt obviously has difficulties to concentrate, stay focused, was keep repeating the same question over and over again. "when I will be discharged?" pt was [facility] [place], was accepted,SW will find out the financial part. Pt has some resting tremor on RUE, no rigidity. as per staff pt seems to be calm, no behavioral issues. Impression: schizoaffective disorder marijuana abuse Medication Change: No (continued) Medical Record Reviewed: Yes Consults ordered or reviewed: medical consult appreciated Mental Status Examination - Cognitive Function Orientation: Person, Place Memory: Impaired (chronic) Attention: Poor Concentration: Poor Association: WNL Fund of Knowledge: WNL - Mood Mood: Neutral - Affect Affect: Constricted - Speech Speech: Slurred - Formal Thought Process Formal Thought Process: Other (residual symtpoms, disorganized thoughts) - Suicidal Ideation Suicidal Ideation: No - Homicidal Ideation Homicidal Ideation: No Goal/Treatment Plan - Goal/Treatment Plan Need for Continued Stay: Remain at risks for inpatient hospitalization, Severe depression anxiety, Discharge may exacerbated symptoms, Failed transitioning, Severe functional impairment Progress Toward Problem(s) and Goals/Treatment Plan: Milieu/structure/supportive therapy Medical consult appreciated, see medical team note for more detailed info Depakote 500 mg twice a day for mood stabilization Klonopin 1 mg twice a day for anxiety Risperdal 2 mg twice a day for psychosis Dilantin 100 mg 3 times a day for seizures Cogentin because patient had some resting tremor in right upper extremity SW consultation for discharge plan and social issues Family involvement Follow up on labs Will monitor closely Pt was educated about risk/benefits and alternatives of medications, coping strategies (safety plan, suicide prevention), relapse prevention, importance of follow up with psychiatrist and therapist, stay away from drugs/alcohol/smoking Estimated Date of D/C: 11/06/17
[2017-11-05] MEDS: Divalproex 500 mg DR(BID formulation) PO SCH ×2 (09:00→21:08)
--- NOTE | 2017-11-05 14:28 | PCM.PYCHPN ---
Psychiatric Progress Note - Psychiatric Progress Note Patient seen today, length of contact: 30min Patient Chief Complaint: "when I am leaving?" Problems Identified/Issues Discussed: Suicide/ homicide prevention, past psychiatric h/o, current psychiatric symptoms , medical problems, risk/benefits and alternatives of medications, medications compliance, coping strategies, substance abuse h/o, relapse prevention, importance of follow up with psychiatrist and therapist, discharge plan. Medical Problems: pt denied any medical issues Diagnostic Results: 10/31/17 12:50 11/01/17 07:30 Lab Results 11/01/17 11:40: Phenytoin 12, Valproic Acid 48 L 11/01/17 07:30: Hemoglobin A1c 6.0 11/01/17 07:30: Sodium 141, Potassium 3.8, Chloride 109 H, Carbon Dioxide 23, Anion Gap 13, BUN 16, Creatinine 0.9, Est GFR ( Amer) > 60, Est GFR (Non- Af Amer) > 60, Random Glucose 94, Calcium 8.8, Triglycerides 58, Cholesterol 153 , LDL Cholesterol Direct 87, HDL Cholesterol 37 10/31/17 12:50: Alcohol, Quantitative < 10 10/31/17 12:50: Salicylates < 1 L, Acetaminophen < 10.0 L 10/31/17 12:50: Urine Opiates Screen Negative, Urine Methadone Screen Negative, Ur Barbiturates Screen Negative, Ur Phencyclidine Scrn Negative, Ur Amphetamines Screen Negative, U Benzodiazepines Scrn Negative, U Oth Cocaine Metabols Negative, U Cannabinoids Screen Negative 10/31/17 12:50: Sodium 143, Potassium 3.9, Chloride 107, Carbon Dioxide 22, Anion Gap 17, BUN 13, Creatinine 0.9, Est GFR ( Amer) > 60, Est GFR (Non- Af Amer) > 60, Random Glucose 104, Calcium 9.5, Total Bilirubin 0.6, AST 38, ALT 39, Alkaline Phosphatase 77, Total Protein 8.2, Albumin 4.2, Globulin 4.0, Albumin/Globulin Ratio 1.1 10/31/17 12:50: Urine Color Yellow, Urine Appearance Clear, Urine pH 6.5, Ur Specific [place] 1.020, Urine Protein Negative, Urine Glucose (UA) Negative, Urine Ketones 15 H, Urine Blood Negative, Urine Nitrate Negative, Urine Bilirubin Small H, Urine Urobilinogen 1.0 H, Ur Leukocyte Esterase Negative 10/31/17 12:50: WBC 8.6 D, RBC 4.38, Hgb 13.3 L, Hct 39.8 L, MCV 90.9, MCH 30.4 , MCHC 33.4, RDW 12.7, Plt Count 210, MPV 9.8, Gran % 53.6, Lymph % (Auto) 37.0 H, [place] % (Auto) 9.0 H, Eos % (Auto) 0.3 L, Baso % (Auto) 0.1, Gran # 4.61, Lymph # 3.2, [place] # 0.8 H, Eos # 0.0, Baso # 0.01 10/31/17 12:50 11/01/17 07:30 Lab Results 11/01/17 11:40: Phenytoin 12, Valproic Acid 48 L 11/01/17 07:30: Hemoglobin A1c 6.0 11/01/17 07:30: Sodium 141, Potassium 3.8, Chloride 109 H, Carbon Dioxide 23, Anion Gap 13, BUN 16, Creatinine 0.9, Est GFR ( Amer) > 60, Est GFR (Non- Af Amer) > 60, Random Glucose 94, Calcium 8.8, Triglycerides 58, Cholesterol 153 , LDL Cholesterol Direct 87, HDL Cholesterol 37 10/31/17 12:50: Alcohol, Quantitative < 10 10/31/17 12:50: Salicylates < 1 L, Acetaminophen < 10.0 L 10/31/17 12:50: Urine Opiates Screen Negative, Urine Methadone Screen Negative, Ur Barbiturates Screen Negative, Ur Phencyclidine Scrn Negative, Ur Amphetamines Screen Negative, U Benzodiazepines Scrn Negative, U Oth Cocaine Metabols Negative, U Cannabinoids Screen Negative 10/31/17 12:50: Sodium 143, Potassium 3.9, Chloride 107, Carbon Dioxide 22, Anion Gap 17, BUN 13, Creatinine 0.9, Est GFR ( Amer) > 60, Est GFR (Non- Af Amer) > 60, Random Glucose 104, Calcium 9.5, Total Bilirubin 0.6, AST 38, ALT 39, Alkaline Phosphatase 77, Total Protein 8.2, Albumin 4.2, Globulin 4.0, Albumin/Globulin Ratio 1.1 10/31/17 12:50: Urine Color Yellow, Urine Appearance Clear, Urine pH 6.5, Ur Specific [place] 1.020, Urine Protein Negative, Urine Glucose (UA) Negative, Urine Ketones 15 H, Urine Blood Negative, Urine Nitrate Negative, Urine Bilirubin Small H, Urine Urobilinogen 1.0 H, Ur Leukocyte Esterase Negative 10/31/17 12:50: WBC 8.6 D, RBC 4.38, Hgb 13.3 L, Hct 39.8 L, MCV 90.9, MCH 30.4 , MCHC 33.4, RDW 12.7, Plt Count 210, MPV 9.8, Gran % 53.6, Lymph % (Auto) 37.0 H, [place] % (Auto) 9.0 H, Eos % (Auto) 0.3 L, Baso % (Auto) 0.1, Gran # 4.61, Lymph # 3.2, [place] # 0.8 H, Eos # 0.0, Baso # 0.01 Temp Pulse Resp BP Pulse Ox 98.1 F 59 L 20 107/67 99 11/05/17 07:09 11/05/17 07:09 11/05/17 07:09 11/05/17 07:09 10/31/17 17:24 DSM 5 Symptoms Update: Patient is a single 41 year old -Americanmale with a long history of Schizoaffective disorder, numerous hospitalizations including [facility], poor outpatient adherence as well as poor compliance with medications who presented to our ED with symptoms of anxiety and "feeling stressed". Patient was noted to be disorganized and signed himself in for further stabilization. as per report from , pt was completely refused to engage in an interview with her. pt was seen at the dinning area, pt presented with acceptable personal hygiene, seems to be careless about his appearance, pt presented relatively well, there is some cognitive limitation most likely due to chronic mental illness and substance abuse h/o, when this commercial underwriter asked about the meeting with the foundry worker apprentice of Boarding home , pt starred at this commercial underwriter and asked "Wha?", after three times of repeating the same statement pt was able to comprehend the treatment and discharge plan. pt was slow with responses, pt obviously has difficulties to concentrate, stay focused, was keep repeating the same question over and over again. Pt has some resting tremor on RUE, no rigidity, willing to increase Cogentin. as per staff pt seems to be calm, no behavioral issues. Impression: schizoaffective disorder marijuana abuse Medication Change: Yes (cogentin increased) Medical Record Reviewed: Yes Consults ordered or reviewed: medical consult appreciated Mental Status Examination - Cognitive Function Orientation: Person, Place Memory: Impaired (chronic) Attention: Poor Concentration: Poor Association: WNL Fund of Knowledge: WNL - Mood Mood: Neutral - Affect Affect: Constricted - Speech Speech: Slurred - Formal Thought Process Formal Thought Process: Other (residual symtpoms, disorganized thoughts) - Suicidal Ideation Suicidal Ideation: No - Homicidal Ideation Homicidal Ideation: No Goal/Treatment Plan - Goal/Treatment Plan Need for Continued Stay: Remain at risks for inpatient hospitalization, Severe depression anxiety, Discharge may exacerbated symptoms, Failed transitioning, Severe functional impairment Progress Toward Problem(s) and Goals/Treatment Plan: Milieu/structure/supportive therapy Medical consult appreciated, see medical team note for more detailed info Depakote 500 mg twice a day for mood stabilization depakote level 11/06/17 Klonopin 1 mg twice a day for anxiety Risperdal 2 mg twice a day for psychosis Dilantin 100 mg 3 times a day for seizures Cogentin 1mg bid for EPS SW consultation for discharge plan and social issues Family involvement Follow up on labs Will monitor closely Pt was educated about risk/benefits and alternatives of medications, coping strategies (safety plan, suicide prevention), relapse prevention, importance of follow up with psychiatrist and therapist, stay away from drugs/alcohol/smoking Estimated Date of D/C: 11/09/17
[2017-11-06] MEDS: Divalproex 500 mg DR(BID formulation) PO SCH ×2 (09:31→21:02)
--- NOTE | 2017-11-06 13:04 | PCM.PYCHPN ---
Psychiatric Progress Note - Psychiatric Progress Note Patient seen today, length of contact: 30min Patient Chief Complaint: "I am alright..." Problems Identified/Issues Discussed: Suicide/ homicide prevention, past psychiatric h/o, current psychiatric symptoms , medical problems, risk/benefits and alternatives of medications, medications compliance, coping strategies, substance abuse h/o, relapse prevention, importance of follow up with psychiatrist and therapist, discharge plan. Medical Problems: pt denied any medical issues Diagnostic Results: 10/31/17 12:50 11/01/17 07:30 Lab Results 11/01/17 11:40: Phenytoin 12, Valproic Acid 48 L 11/01/17 07:30: Hemoglobin A1c 6.0 11/01/17 07:30: Sodium 141, Potassium 3.8, Chloride 109 H, Carbon Dioxide 23, Anion Gap 13, BUN 16, Creatinine 0.9, Est GFR ( Amer) > 60, Est GFR (Non- Af Amer) > 60, Random Glucose 94, Calcium 8.8, Triglycerides 58, Cholesterol 153 , LDL Cholesterol Direct 87, HDL Cholesterol 37 10/31/17 12:50: Alcohol, Quantitative < 10 10/31/17 12:50: Salicylates < 1 L, Acetaminophen < 10.0 L 10/31/17 12:50: Urine Opiates Screen Negative, Urine Methadone Screen Negative, Ur Barbiturates Screen Negative, Ur Phencyclidine Scrn Negative, Ur Amphetamines Screen Negative, U Benzodiazepines Scrn Negative, U Oth Cocaine Metabols Negative, U Cannabinoids Screen Negative 10/31/17 12:50: Sodium 143, Potassium 3.9, Chloride 107, Carbon Dioxide 22, Anion Gap 17, BUN 13, Creatinine 0.9, Est GFR ( Amer) > 60, Est GFR (Non- Af Amer) > 60, Random Glucose 104, Calcium 9.5, Total Bilirubin 0.6, AST 38, ALT 39, Alkaline Phosphatase 77, Total Protein 8.2, Albumin 4.2, Globulin 4.0, Albumin/Globulin Ratio 1.1 10/31/17 12:50: Urine Color Yellow, Urine Appearance Clear, Urine pH 6.5, Ur Specific [place] 1.020, Urine Protein Negative, Urine Glucose (UA) Negative, Urine Ketones 15 H, Urine Blood Negative, Urine Nitrate Negative, Urine Bilirubin Small H, Urine Urobilinogen 1.0 H, Ur Leukocyte Esterase Negative 10/31/17 12:50: WBC 8.6 D, RBC 4.38, Hgb 13.3 L, Hct 39.8 L, MCV 90.9, MCH 30.4 , MCHC 33.4, RDW 12.7, Plt Count 210, MPV 9.8, Gran % 53.6, Lymph % (Auto) 37.0 H, Cloud % (Auto) 9.0 H, Eos % (Auto) 0.3 L, Baso % (Auto) 0.1, Gran # 4.61, Lymph # 3.2, Cloud # 0.8 H, Eos # 0.0, Baso # 0.01 10/31/17 12:50 11/01/17 07:30 Lab Results 11/01/17 11:40: Phenytoin 12, Valproic Acid 48 L 11/01/17 07:30: Hemoglobin A1c 6.0 11/01/17 07:30: Sodium 141, Potassium 3.8, Chloride 109 H, Carbon Dioxide 23, Anion Gap 13, BUN 16, Creatinine 0.9, Est GFR ( Amer) > 60, Est GFR (Non- Af Amer) > 60, Random Glucose 94, Calcium 8.8, Triglycerides 58, Cholesterol 153 , LDL Cholesterol Direct 87, HDL Cholesterol 37 10/31/17 12:50: Alcohol, Quantitative < 10 10/31/17 12:50: Salicylates < 1 L, Acetaminophen < 10.0 L 10/31/17 12:50: Urine Opiates Screen Negative, Urine Methadone Screen Negative, Ur Barbiturates Screen Negative, Ur Phencyclidine Scrn Negative, Ur Amphetamines Screen Negative, U Benzodiazepines Scrn Negative, U Oth Cocaine Metabols Negative, U Cannabinoids Screen Negative 10/31/17 12:50: Sodium 143, Potassium 3.9, Chloride 107, Carbon Dioxide 22, Anion Gap 17, BUN 13, Creatinine 0.9, Est GFR ( Amer) > 60, Est GFR (Non- Af Amer) > 60, Random Glucose 104, Calcium 9.5, Total Bilirubin 0.6, AST 38, ALT 39, Alkaline Phosphatase 77, Total Protein 8.2, Albumin 4.2, Globulin 4.0, Albumin/Globulin Ratio 1.1 10/31/17 12:50: Urine Color Yellow, Urine Appearance Clear, Urine pH 6.5, Ur Specific [place] 1.020, Urine Protein Negative, Urine Glucose (UA) Negative, Urine Ketones 15 H, Urine Blood Negative, Urine Nitrate Negative, Urine Bilirubin Small H, Urine Urobilinogen 1.0 H, Ur Leukocyte Esterase Negative 10/31/17 12:50: WBC 8.6 D, RBC 4.38, Hgb 13.3 L, Hct 39.8 L, MCV 90.9, MCH 30.4 , MCHC 33.4, RDW 12.7, Plt Count 210, MPV 9.8, Gran % 53.6, Lymph % (Auto) 37.0 H, Cloud % (Auto) 9.0 H, Eos % (Auto) 0.3 L, Baso % (Auto) 0.1, Gran # 4.61, Lymph # 3.2, Cloud # 0.8 H, Eos # 0.0, Baso # 0.01 Temp Pulse Resp BP Pulse Ox 98.1 F 59 L 20 107/67 99 11/05/17 07:09 11/05/17 07:09 11/05/17 07:09 11/05/17 07:09 10/31/17 17:24 DSM 5 Symptoms Update: Patient is a single 41 year old -Americanmale with a long history of Schizoaffective disorder, numerous hospitalizations including [facility], poor outpatient adherence as well as poor compliance with medications who presented to our ED with symptoms of anxiety and "feeling stressed". Patient was noted to be disorganized and signed himself in for further stabilization. as per report from , pt was completely refused to engage in an interview with her. pt was seen at the treatment team meeting room, pt presented with acceptable personal hygiene, seems to be careless about his appearance, pt presented relatively well, there is some cognitive limitation most likely due to chronic mental illness and substance abuse h/o, pt was educated about his medications, but ?comprehension. pt was slow with responses, pt obviously has difficulties to concentrate, stay focused, was keep repeating the same question over and over again. Pt has some resting tremor on RUE, no rigidity, cogentin was increased yesterday. as per staff pt seems to be calm, no behavioral issues. Impression: schizoaffective disorder marijuana abuse Medication Change: Yes (cogentin increased) Medical Record Reviewed: Yes Consults ordered or reviewed: medical consult appreciated Mental Status Examination - Cognitive Function Orientation: Person, Place Memory: Impaired (chronic) Attention: Poor Concentration: Poor Association: WNL Fund of Knowledge: WNL - Mood Mood: Neutral - Affect Affect: Constricted - Speech Speech: Slurred - Formal Thought Process Formal Thought Process: Other (residual symtpoms, disorganized thoughts) - Suicidal Ideation Suicidal Ideation: No - Homicidal Ideation Homicidal Ideation: No Goal/Treatment Plan - Goal/Treatment Plan Need for Continued Stay: Remain at risks for inpatient hospitalization, Severe depression anxiety, Discharge may exacerbated symptoms, Failed transitioning, Severe functional impairment Progress Toward Problem(s) and Goals/Treatment Plan: Milieu/structure/supportive therapy Medical consult appreciated, see medical team note for more detailed info Depakote 500 mg twice a day for mood stabilization depakote level was 31 11/06/17 Klonopin 1 mg twice a day for anxiety Risperdal 2 mg twice a day for psychosis Dilantin 100 mg 3 times a day for seizures Cogentin 1mg bid for EPS SW consultation for discharge plan and social issues Family involvement Follow up on labs Will monitor closely Pt was educated about risk/benefits and alternatives of medications, coping strategies (safety plan, suicide prevention), relapse prevention, importance of follow up with psychiatrist and therapist, stay away from drugs/alcohol/smoking Estimated Date of D/C: 11/09/17
--- NOTE | 2017-11-07 09:05 | PCM.PYCHPN ---
Psychiatric Progress Note - Psychiatric Progress Note Patient seen today, length of contact: 25 min Patient Chief Complaint: "better" Problems Identified/Issues Discussed: I reviewed recent notes and met with patient at bedside. He is more responsive and less preoccupied than our meeting last weekend. Focus and eye contact are better and he tells me that he feels improved. Patient still appears guarded and aloof. Affect is flat and preoccupied. Patient is oriented to month and location but cannot figure out current year. He doesnt appear to be responding to internal stimuli during our questioning however he appears distracted and oddly related, perhaps suspicious. Patient has been compliant with medications and thus far denies side effects, discomfort or pain. Staff notes indicate he has been isolative and preoccupied. His comprehension and responses appear slow and patient requires simple instructions. Patient remains unpredictable with poor insight and judgment. Diagnostic Results: Schizoaffective disorder marijuana abuse Medication Change: Yes (cogentin increased) Medical Record Reviewed: Yes Mental Status Examination - Cognitive Function Orientation: Person, Place Memory: Impaired (chronic) Attention: Poor Concentration: Poor Association: WNL Fund of Knowledge: WNL - Mood Mood: Neutral ("better") - Affect Affect: Constricted, Flat - Speech Speech: Slurred - Formal Thought Process Formal Thought Process: Paranoia, Other (residual symtpoms, disorganized thoughts) - Suicidal Ideation Suicidal Ideation: No - Homicidal Ideation Homicidal Ideation: No Goal/Treatment Plan - Goal/Treatment Plan Need for Continued Stay: Remain at risks for inpatient hospitalization, Severe depression anxiety, Discharge may exacerbated symptoms, Failed transitioning, Severe functional impairment Progress Toward Problem(s) and Goals/Treatment Plan: * Continue current tx and plan * No new weekend labs thus far * Vitals reviewed and noted below: 11/01/17 07:43 Temperature 97.7 F Pulse Rate 64 Respiratory 20 Rate Blood Pressure 114/69 Estimated Date of D/C: 11/09/17
[2017-11-07] MEDS: Divalproex 500 mg DR(BID formulation) PO SCH ×2 (09:37→21:51)
--- NOTE | 2017-11-08 09:22 | PCM.PYCHPN ---
Psychiatric Progress Note - Psychiatric Progress Note Patient seen today, length of contact: 25 min Patient Chief Complaint: "better" Problems Identified/Issues Discussed: I reviewed recent notes and met with patient at bedside. He remains a little more responsive and less preoccupied than our meeting last weekend. Patient still appears guarded and aloof. Affect is flat and preoccupied. He doesn't appear to want any visitors or engage in a conversation. He isn't responding to internal stimuli during our questioning however he appears distracted, oddly related and perhaps suspicious. Patient has been compliant with medications and thus far denies side effects, discomfort or pain. Staff notes indicate he has been isolative and preoccupied. Patient briefly joined group yesterday and then walked out. Comprehension and responses are slow and patient needs simple instructions. Patient did want to shower yesterday but water was too cold. I still feel that patient remains unpredictable though with some improvement in insight and judgment. Diagnostic Results: Schizoaffective disorder marijuana abuse Medication Change: Yes (cogentin increased) Medical Record Reviewed: Yes Mental Status Examination - Cognitive Function Orientation: Person, Place Memory: Impaired (chronic) Attention: Poor Concentration: Poor Association: WNL Fund of Knowledge: WNL - Mood Mood: Neutral ("better") - Affect Affect: Constricted, Flat - Speech Speech: Slurred - Formal Thought Process Formal Thought Process: Paranoia, Other (residual symtpoms, disorganized thoughts) - Suicidal Ideation Suicidal Ideation: No - Homicidal Ideation Homicidal Ideation: No Goal/Treatment Plan - Goal/Treatment Plan Need for Continued Stay: Remain at risks for inpatient hospitalization, Severe depression anxiety, Discharge may exacerbated symptoms, Failed transitioning, Severe functional impairment Progress Toward Problem(s) and Goals/Treatment Plan: * Continue current tx and plan * No new weekend labs thus far * Vitals reviewed and noted below: 11/08/17 07:00 Temperature 97.7 F Pulse Rate 68 Respiratory 18 Rate Blood Pressure 120/72 Estimated Date of D/C: 11/09/17
[2017-11-08] MEDS: Divalproex 500 mg DR(BID formulation) PO SCH ×2 (10:35→21:09)
[2017-11-09 07:44] VITALS: BP 127/73; PULSE 71; RESP 16; TEMP 98.3
[2017-11-09] MEDS: Divalproex 500 mg DR(BID formulation) PO SCH (09:14)
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
== END 2017-11-09 13:51 | disposition home or self-care (01) | DRG 885 ==
LOC: ED 11:23 → ERH 17:46 → PSYC 19:23
PROVIDERS: ADMIT Psychiatry & Neurology Psychiatry; ATTEND Psychiatry & Neurology Psychiatry
DX: F25.9 Schizoaffective disorder, unspecified (principal); G40.909 Epilepsy, unspecified, not intractable, without status epilepticus; F12.10 Cannabis abuse, uncomplicated; Z91.14 Patient's other noncompliance with medication regimen; F41.9 Anxiety disorder, unspecified; L40.9 Psoriasis, unspecified; I10 Essential (primary) hypertension; J45.909 Unspecified asthma, uncomplicated; R25.1 Tremor, unspecified; F17.210 Nicotine dependence, cigarettes, uncomplicated

== ENCOUNTER 2019-01-09 22:09 | Inpatient (IN) | payer MEDICAID, MEDICARE ==
--- NOTE | 2019-01-09 22:27 | ED PDOC ---
Arrival/HPI - General Chief Complaint: Chest Pain Time Seen by Provider: 01/09/19 22:15 Historian: Patient, EMS - History of Present Illness Narrative History of Present Illness (Text): 01/09/19 22:27 Manolo Wells is a 43 year old male, whose past medical history includes asthma, hypertension, seizure disorder, anxiety, bipolar disorder, depression, and schizoaffective disorder, who presents to the ED [facility] for apparent [facility] pain. However, when questioned, patient is refusing to respond and refusing testing. Patient has been seen on multiple prior occasions at [facility] and [facility] for non-specific complaints and has been seen by PES. Limited HPI and ROS secondary to patient's lack of cooperation. Symptom Onset: Gradual Symptom Course: Unchanged Activities at Onset: Light Context: Home Past Medical History - Provider Review Nursing Documentation Reviewed: Yes - Past History Past History: No Previous - Infectious Disease Hx of Infectious Diseases: None - Tetanus Immunization Tetanus Immunization: Unknown - Cardiac Hx Cardiac Disorders: Yes Hx Hypertension: Yes - Pulmonary Hx Tuberculosis: No - Neurological HX Cerebrovascular Accident: No Hx Seizures: No - HEENT Hx HEENT Disorder: No - Renal Hx Renal Disorder: No - Endocrine/Metabolic Hx Endocrine Disorders: No - Hematological/Oncological Hx Cancer: No - Integumentary Hx Dermatological Disorder: No - Musculoskeletal/Rheumatological Hx Musculoskeletal Disorders: No - Gastrointestinal Hx Gastrointestinal Disorders: No - Genitourinary/Gynecological Hx Sexually Transmitted Diseases: No - Psychiatric Hx Psychophysiologic Disorder: Yes Hx Anxiety: Yes Hx Bipolar Disorder: Yes Hx Depression: Yes Hx Schizophrenia: Yes Hx Substance Use: Yes (marijuana) - Surgical History Other/Comment: unable to assess due to psychotic behavior - Anesthesia Hx Anesthesia: No Hx Anesthesia Reactions: No Hx Malignant Hyperthermia: No - Suicidal Assessment Feels Threatened In Home Enviroment: No Family/Social History - Physician Review Nursing Documentation Reviewed: Yes Family/Social History: Unknown Family HX Smoking Status: Heavy Smoker > 10 Cigarettes Daily Hx Alcohol Use: Yes Hx Substance Use: Yes (marijuana) Substance used: marijuana Hx Substance Use Treatment: No Allergies/Home Meds Allergies/Adverse Reactions: Allergies No Known Allergies Allergy (Verified 12/30/18 03:50) Home Medications: Home Meds Medication Instructions Recorded Confirmed Divalproex [Jose ALVES(*BID*)] 3 tab PO AMHS 09/13/18 01/09/19 Risperidone [Risperdal] 2 tab PO BID 09/13/18 01/09/19 Benztropine [Cogentin] 2 mg PO DAILY 01/09/19 01/09/19 chlorproMAZINE [chlorpromazine HCl] 100 mg PO BID 01/09/19 01/09/19 traZODone [trazODONE HYDROCHLORIDE] 50 mg PO DAILY 01/09/19 01/09/19 Review of Systems - Review of Systems Systems not reviewed;Unavailable: Uncooperative Physical Exam - Physical Exam Physical Exam Limitations: Uncooperative Vital Signs Reviewed: Yes Vital Signs Temp Pulse Resp BP Pulse Ox 01/09/19 22:15 98.1 F 70 18 105/57 L 96 Temperature: Afebrile Blood Pressure: Normal Pulse: Regular Respiratory Rate: Normal Appearance: Positive for: Well-Appearing Pain Distress: None - Systems Exam Head: Present: Atraumatic, Normocephalic Neck: Present: Normal Range of Motion Respiratory/Chest: Present: Clear to Auscultation, Good Air Exchange. No: Respiratory Distress, Accessory Muscle Use Cardiovascular: Present: Regular Rate and Rhythm, Normal S1, S2. No: Murmurs Abdomen: No: Tenderness, Distention, Peritoneal Signs Upper Extremity: Present: Normal Inspection. No: Cyanosis, Edema Lower Extremity: Present: Normal Inspection. No: Edema Skin: Present: Warm, Dry, Normal Color. No: Rashes Psychiatric: Present: Alert, Oriented x 3, Normal Insight, Normal Concentration Medical Decision Making ED Course and Treatment: 01/09/19 22:27 Impression: 43 year old male [facility] complaining of [facility] pain, however, pt refusing testing or to answer any questions Plan: -- PES -- Reassess and disposition Prior Visits: Notes and results from previous visits were reviewed. Progress Notes: Reviewed EKG, NSR at [address]-segment elevations or depressions, no T-wave inversions, normal intervals. 01/10/19 01:3 Pt now cooperative, stating h had chest pain while playing basketball during the day. Pt states chest pain has been intermittent but continuous, prompting him to come to the ED for further evaluation. Pt states he smokes multiple cigarettes a day. Pt denies cough or shortness of breath. Pt was seen by PES, who cleared the pt psychiatrically. Pt agreed to undergo ER evaluation. Reviewed EKG, NSR at [address]-segment elevations or depressions, no T-wave inversions, normal intervals. 01/10/19 02:[address] Larsen, who is aware and agrees with plan. Accepts pt in to her service. Pt will go to remote telemetry observation for chest pain. Requests Dr. Ramirez on consult. 01/10/19 02:42 Chest X-ray reviewed, shows no acute processes. - Lab Interpretations I have reviewed the lab results: Yes - RAD Interpretation Test Architect: ED Physician - EKG Interpretation Interpreted by ED Physician: Yes Type: 12 lead EKG - Scribe Statement The provider has reviewed the documentation as recorded by the Jane Diaz Provider Scribe Attestation: All medical record entries made by the Scribe were at my direction and personally dictated by me. I have reviewed the chart and agree that the record accurately reflects my personal performance of the history, physical exam, medical decision making, and the department course for this patient. I have also personally directed, reviewed, and agree with the discharge instructions and disposition. Disposition/Present on Arrival - Present on Arrival Any Indicators Present on Arrival: No History of DVT/PE: No History of Uncontrolled Diabetes: No Urinary Catheter: No History of Decub. Ulcer: No History Surgical Site Infection Following: None - Disposition Have Diagnosis and Disposition been Completed?: Yes Diagnosis: Chest pain, Schizoaffective disorder Disposition: HOSPITALIZED Disposition Time: 02:44 Patient Plan: Observation Patient Problems: Current Active Problems Problem Status Onset Chest pain Acute Schizoaffective disorder Chronic Condition: STABLE
[2019-01-10 00:21] LABS: ALB/GLOB RATIO 1.1 (1.1-1.8); ALBUMIN 3.6 g/dL (3.0-4.8); ALT/SGPT 19 U/L (7-56); AST/SGOT 36 U/L (17-59); BLOOD UREA NITROGEN 15 mg/dL (7-21); CALCIUM 8.5 mg/dL (8.4-10.5); GFR NON-AFRICAN AMERICAN > 60
[2019-01-10 00:29] LABS: HEMOGLOBIN 12.6 g/dL (14.0-18.0); MEAN CELL VOLUME 93.4 fl (80.0-105.0); MEAN CORPUSCULAR HEMOGLOBIN 30.8 pg (25.0-35.0); MEAN PLATELET VOLUME 9.2 fl (7.0-11.0); RBC 4.09 10^6/uL (3.5-6.1); RED CELL DISTRIBUTION WIDTH 13.2 % (11.5-14.5); WHITE BLOOD COUNT 7.4 10^3/uL (4.5-11.0)
[2019-01-10 00:32] LABS: TROPONIN I < 0.01 ng/mL
[2019-01-10 00:39] LABS: CK-MB 4.3 ng/mL (0.0-3.6)
[2019-01-10 04:18] LABS: BARBITURATES, UR NEGATIVE (NEGATIVE); BENZODIAZEPINES, UR NEGATIVE (NEGATIVE); PHENCYCLIDINE, UR NEGATIVE (NEGATIVE)
[2019-01-10 04:33] LABS: OPIATES, UR NEGATIVE (NEGATIVE)
--- NOTE | 2019-01-10 09:49 | RAD ---
Date of service: 01/10/2019 HISTORY: fever COMPARISON: 10/31/2017 TECHNIQUE: 1 view obtained. FINDINGS: LUNGS: No active pulmonary disease. PLEURA: No significant pleural effusion identified, no pneumothorax apparent. CARDIOVASCULAR: No aortic atherosclerotic calcification present. Normal cardiac size. No pulmonary vascular congestion. OSSEOUS STRUCTURES: No significant abnormalities. VISUALIZED UPPER ABDOMEN: Normal. OTHER FINDINGS: None. IMPRESSION: No active disease.
--- NOTE | 2019-01-10 16:12 | CARD ---
APPROVED REPORT Date of service: 01/10/2019 EKG Measurement Heart [id number] <Conclusion> Normal sinus rhythm Normal ECG
--- NOTE | 2019-01-10 23:05 | HP ---
DATE OF EXAM: 01/10/2019 HISTORY OF PRESENT ILLNESS: This 43-year-old male who was examined in the emergency room of the [facility], awaiting admission to telemetry for chest pain. He presented to the ER after his group practice pediatrician felt he needed further evaluation of chest pain. According to the patient, he was on a basketball court Thursday and experienced a sharp discomfort in his chest. According to his medication regime, he has a longstanding history of schizophrenia for which he is prescribed chlorpromazine, trazodone, Klonopin, Depakote, Cogentin, and Risperdal. ALLERGIES: THE PATIENT HAS NO KNOWN ALLERGIES TO MEDICATIONS. SOCIAL HISTORY: He is a cigarette smoker of one pack per day for over 20 years. Also smokes marijuana. Denies drinking or IV drug misuse. REVIEW OF SYSTEMS: CONSTITUTIONAL REVIEW: No fever. No chills. HEAD: No headache or seizures. EYES: No change in visual acuity. EARS: No hearing loss. THROAT: No swallowing difficulty. NECK: No stiffness. CARDIAC REVIEW: Chest pain on the basketball court; otherwise, no knowledge of cardiac disease. PULMONARY: No cough. No hemoptysis. GASTROINTESTINAL: No hematemesis. No melena. GENITOURINARY: No dysuria. SKIN: No rash. VASCULAR: No claudication. PSYCHOLOGICAL: As per HPI. NEUROLOGICAL: No knowledge of stroke. FAMILY HISTORY: Unremarkable. There is no significant cardiac history to his knowledge. PHYSICAL EXAMINATION: VITAL SIGNS: He was in normal sinus rhythm on the personnel monitor. His temperature was 98.1, respirations 18, pulse 55, blood pressure 112/60 with a pulse ox of 96% on room air. HEENT: Head: Normocephalic and atraumatic. Eyes: No icterus. Ears: Clear. Throat: Noninjected. NECK: Supple. HEART: S1 and S2. LUNGS: Clear. ABDOMEN: Soft. EXTREMITIES: No edema. SKIN: Without rash. NEUROLOGICAL: Intact. PSYCHOLOGICAL: Alert and oriented. VASCULAR: Legs warm to touch. LABORATORY DATA: White count 7400, hemoglobin 12.6, hematocrit 38.2, MCV 93.4, and platelets 259,000. Sodium 139, K 3.8, chloride 106, bicarb 27, BUN 15, creatinine 0.8, random blood sugar of 111, calcium 8.5, and bilirubin 0.4. AST 36, ALT 19, and alk phos 67. Troponin less than 0.01. Urine drug screen unremarkable. Alcohol level less than 10. EKG reportedly showed normal sinus rhythm with nonspecific ST-T wave changes. Chest x-ray showed clear lungs, no effusion, no pneumonia, no infiltrate, and no pneumothorax. IMPRESSION: This is a 43-year-old male with history of paranoid schizophrenia, now with chest pain with strong smoking history, rule out unstable angina. PLAN: The plan is to admit this patient. He will continue on heart-healthy diet, he is awaiting psychological evaluation by Dr. Ramirez from Psychiatry. He was given Ecotrin in the ER and one dose of Klonopin stat. He will continue on nasal O2, I have ordered a 2D echocardiogram, Lexiscan stress test, lipid panel, and based on clinical results, additional diagnostic workup and testing will be entertained. Greater than 75 minutes were spent in the care management, review of labs orders, x-rays, and discussion of this patient with himself, nursing, and all questions were answered. Sabrina Larsen MD MTDСергей
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
[2019-01-11 07:28] LABS: HDL CHOLESTEROL 49 mg/dL (29-60)
[2019-01-11 07:39] LABS: LDL CHOLESTEROL 79 mg/dL (0-129)
[2019-01-11] MEDS: Divalproex 500 mg DR(BID formulation) PO SCH ×2 (09:08→17:57)
[2019-01-11 10:53] LABS: IRON 97 ug/dL (45-180)
[2019-01-11 11:02] LABS: % IRON SATURATION 35 % (20-55); TOTAL IRON BINDING CAPACITY 272 ug/dL (261-462)
--- NOTE | 2019-01-11 14:22 | CP.PCM.PCO ---
Additional Comments - Additional Comments Additional Comments: Pt. admitted with exertional chest pain. Echo , stress test ordered, patient initally refused. Psyche consulted, stating severe psychiatric decompensation PMD requests legal representation for decision making due to patient's admitted with chest pain, lacks capacity and insight to follow up for outpatient workup.
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
--- NOTE | 2019-01-11 16:08 | PN ---
DATE: 01/11/2019 SUBJECTIVE: This 43-year-old male remains hospitalized on the cardiac smith on the morning of 01/11/2019. This case was reviewed in detail with nurse Sabrina Gibson, registered nurse and Ann Marie Parker, registered nurse. The patient remains alert, cooperative with medication, but difficult with required testing. He was admitted with chest pain which was exertional experienced on a basketball court; however, he refused his echocardiogram earlier. He was seen by Dr. Ramirez, who had a difficult interview with this patient because he was evasive would not speak with him. On radiation monitor, he is in normal sinus rhythm. PHYSICAL EXAMINATION: VITAL SIGNS: With a temperature of 97.5, respirations 16, pulse 53 and blood pressure 114/72, pulse ox 98%. HEENT: Head is normocephalic, atraumatic. Eyes; no icterus. Ears; clear. Throat; non-injected. NECK: Supple. HEART: S1, S2. LUNGS: Clear. ABDOMEN: Soft. EXTREMITIES: No edema. SKIN: Without rash. NEUROLOGIC: Intact. PSYCHOLOGIC: Alert. VASCULAR: Legs warm to touch. LABORATORY DATA: White count 7400, hemoglobin 12.6, hematocrit 38.2, platelets 159,000. Sodium 139, K 3.8, chloride 106, bicarb 27, BUN 15, creatinine 0.8, random blood sugar 97, bilirubin 0.4, AST 36, ALT 19, alk phos 67 than cholesterol 155, triglycerides 53, LDL 79 and HDL 49. Drug screen was negative. IMPRESSION: A 43-year-old male with history of schizoaffective disorder also admitted with typical chest pain, exertional in nature and anemia. PLAN: At present is to check vitamin B12, ferritin, iron TIBC and folic acid levels. He is on psychotropic medication under the direction of Dr. Ramirez including Cogentin, Depakote, Klonopin, and Risperdal as well as Thorazine. I have ordered nitroglycerin p.r.n. for chest pain, Ecotrin 81 mg p.o. daily, nasal O2 p.r.n. and echo and Lexiscan stress test. He will continue on a heart healthy diet and I have asked the nursing staff to call Dr. Ramirez if he refuses any further testing for competency evaluation. Greater than 35 minutes was spent in the care management, review of labs orders x-rays and discussion of this patient with nursing and himself all questions were answered. Sabrina Larsen MD CLARIBEL
[2019-01-11 16:31] VITALS: RESP 18
[2019-01-11 17:12] LABS: FERRITIN 15.3 ng/mL
[2019-01-11 17:42] LABS: FOLATE 10.2 ng/mL
--- NOTE | 2019-01-11 18:41 | CARD ---
APPROVED REPORT Date of service: 01/11/2019 EXAM: Two-dimensional and M-mode echocardiogram with Doppler and color Doppler. INDICATION Chest Pain 2D DIMENSIONS Left Atrium (2D)4.0 (1.6-4.0cm)IVSd1.0 (0.7-1.1cm) LVDd4.7 (3.9-5.9cm)PWd1.1 (0.7-1.1cm) LVDs3.1 (2.5-4.0cm)FS (%) 35.0 % LVEF (%)64.3 (>50%) M-Mode DIMENSIONS Aortic Root3.30 (2.2-3.7cm)Aortic Cusp Exc.2.00 (1.5-2.0cm) Aortic Valve AoV Peak Xdxszzow530.0cm/Epi Peak GR.7mmHg Mitral Valve MV E Farpdhki46.0cm/sMV A Usjajaqi01.4cm/sE/A ratio0.9 TDI Lateral E' Peak V7.99cm/sMedial E' Peak V8.68cm/sE/Lateral E'9.3 E/Medial E'8.5 Pulmonary Valve PV Peak Jizmfovm63.5cm/sPV Peak Grad.2mmHg Tricuspid Valve TR Peak [id number]/sRAP [id number] Peak Gr.18mmHg [id number] LEFT VENTRICLE The left ventricle is normal size. There is borderline to mild concentric left ventricular hypertrophy. The left ventricular function is normal. The left ventricular ejection fraction is within the normal range. There is normal LV segmental wall motion. RIGHT VENTRICLE The right ventricle is normal size. The right ventricular systolic function is normal. ATRIA The left atrium size is normal. The right atrium size is normal. The interatrial septum is intact with no evidence for an atrial septal defect. AORTIC VALVE The aortic valve is normal in structure. No aortic regurgitation is present. There is no aortic valvular stenosis. MITRAL VALVE The mitral valve is normal in structure. There is no mitral valve regurgitation noted. TRICUSPID VALVE The tricuspid valve is normal in structure. There is mild tricuspid regurgitation. PULMONIC VALVE The pulmonary valve is normal in structure. GREAT VESSELS The aortic root is normal in size. The IVC is normal in size and collapses >50% with inspiration. PERICARDIAL EFFUSION There is no pleural effusion. There is no pericardial effusion. <Conclusion> Normal chamber size. Borderline concentric LVH. Normal LV systolic function. Mild TR.
[2019-01-11] MEDS ORDERED: Divalproex 500 mg DR(BID formulation) PO SCH (22:00)
[2019-01-12 08:24] VITALS: BP 110/65; PULSE 52; TEMP 98; O2SAT 100
--- NOTE | 2019-01-12 08:36 | PN ---
DATE: 01/11/2019 The patient is a 43-year-old single male with a history of schizoaffective disorder and numerous hospitalizations. I have reviewed the patient's situation with nursing and with Dr. Bradley. I have been asked to opine about the patient's ability to make decisions regarding his own healthcare. He has been resistant to treatment. While he has calmed down considerably, having been unresponsive in the emergency room, the nature of his chronic condition is one that has compromised his insight and judgment and has blocked his ability to make recent judgments regarding management of his healthcare. At this juncture, in the process of dictating this note, I notice that Dr. Laws has also been evaluating the patient. He seems to be interacting with her in a manner different than interacting with me. I have opined in speaking to nurse, Dr. Bradley, after having interacted with the patient that he is not capable of fully understanding or making recent judgements about the nature of his health condition and in making decisions regarding the necessity of his care. I will re-evaluate the patient again tomorrow but in the meantime, would encourage engagement and whenever medical management is necessary to both evaluate and treat the patient's medical condition. Gagan Ramirez MD/ PhD
[2019-01-12] MEDS ORDERED: Aminophylline 25 mg/ml Inj ONE (10:44)
[2019-01-12] MEDS: Divalproex 500 mg DR(BID formulation) PO SCH ×2 (13:01→17:05)
--- NOTE | 2019-01-12 15:10 | CP.PCM.PCO ---
Physician Communication Note - Physician Communication Note Physician Communication Note: Per if stress test neg.may be DC to [facility],awaits result
--- NOTE | 2019-01-12 16:32 | CP.PCM.PCO ---
Physician Communication Note - Physician Communication Note Physician Communication Note: Tamiko Palacios at [facility] aware of discharge, Additional Comments - Additional Comments Additional Comments: [facility] notified of patient's discharge today, to return to half-way electrical contacts adjuster: Tamiko Fox, made aware by at [phone], ext [phone]. Pt. completed stress test today, will f/u results as outpatient, can be discharged to half-way as per Dr. Larsen.
--- NOTE | 2019-01-12 21:53 | CARD ---
APPROVED REPORT Date of service: 01/12/2019 Protocol: LEXISCAN Test Type: Lexiscan Sestamibi Stress Test Attending Physician: Dr. Leyla Ahumada Referring Physician: Dr. Sabrina Larsen Test Indications: Chest Pain Height:6 ft 1 in Weight:173lbs Medications: ASPIRIN, COGENTIN, THORAZINE KLONOPIN, DEPAKOTE, RISPERDONE Medical History: 43 YAER OLD MALE WITH H/O HTN, ASTHMA, SCHIZOPHRENIA, BIPOLAR, DEPRESSION, ANXIETY AND SUBSTANCE ABUSE Target HR: 176 bpm Resting ECG: RSR. Resting Heart Rate: 61 bpm Resting Blood Pressure: 108/68mmHg Submaximum (85%): 150 bpm PROCEDURE Pharmacologic stress testing was performed using 0.4mg per 5ml of regadenoson given intravenously over 7-10 seconds. POST EXERCISE Reason for Termination: Protocol completed Target HR: No Max HR: 64 bpm 57% of Maximum Predicted HR: 176 bpm Exercise duration: 00:30 min:sec, 0 Stage Exercise capacity: 1.0METs Max Blood Pressure: 108/68mmHg Blood Pressure response to exercise: normal resting BP - appropriate response Heart Rate response to exercise: appropriate Chest Pain: No, none Angina index: 0 Arrhythmia: No, none ST Change: No, none Deviation: 0 mm INTERPRETATION Stress EKG Conclusion: IV LEXISCAN NUCLEAR STRESS TEST NEGATIVE FOR CHEST PAIN AND NEGATIVE FOR ST-T CHANGES. NUCLEAR SCAN REPORT PENDING. Signed by Leyla Ahumada Electronically Approved: 01/12/2019 11:24:18 EXAM: Myocardial Perfusion STRESS/REST Stress Test Type: Pharmacologic Imaging Protocol The imaging protocol used to acquire images was Stress Tc-99m/rest Tc-99m 1 day Rest Spect myocardial perfusion imaging was performed in supine position 50 minutes following the injection of 30.2 mCi of Tc-99 Myoview. At peak stress, the patient was injected intravenously with 10.6mCi of Tc-99 tetrofosmin after an infusion time of 0 minutes and 10 seconds. Gated Stress Spect was performed 55 minutes after intravenous Tc-99 Myoview injection. The images were gated to evaluate regional wall motion and calculate ventricular ejection fraction.Images were reconstructed using backfilter projection method in short horizontal and verticle long axis. Spect slices were generated. LV Perfusion The quality of the study is good. The left ventricle is within normal limits in size. The right ventricle is unremarkable. The lung uptake is normal. The distribution of tracer reveals moderately decreased perfusion involving distal anterior/ apical inferolateral and mid to basal inferior rae on the stress study. The remainder of the LV myocardium is unremarkable. The rest myocardial perfusion study shows improvement of the defects. Wall Motion Wall motion study shows normal contractility except for paradoxical septal wall motion of the left ventricle. LVEF = 57%. Conclusion 1. Abnormal SPECT myocardial perfusion study. 2. Partially reverislble, distal anterior/ apical and inferior defects are suspicious of ischemia. 3. Normal overall LV function despite paradoxical septal wall motion.
--- NOTE | 2019-01-13 05:01 | DS ---
FINAL DIAGNOSES: Chest pain, chronic paranoid schizophrenia, and schizoaffective disorder. WIRE TWISTING MACHINE OPERATOR: Gagan Ramirez MD/PhD from Psychiatry. DISPOSITION: nursing home where he resides [address] [place] [address]. DISCHARGE MEDICATIONS: Chlorpromazine 100 mg b.i.d., trazodone 50 mg p.o. daily, Klonopin 1 mg p.o. b.i.d., Depakote 500 mg b.i.d. and 500 mg p.o. at bedtime, Cogentin 2 mg p.o. daily, and Risperdal 2 mg b.i.d. and 2 mg at bedtime. SUMMARY: This 43-year-old male was admitted to [facility] with exertional chest discomfort while playing basketball. He was a difficult to manage the patient because of his psychiatric disorder. A consultation with Dr. Ramirez was obtained who felt the patient was psychiatrically decompensated, but fortunately with empathetic counseling, the patient was convinced to proceed with cardiac testing. Echocardiography was completed and reviewed, it showed normal chamber size, borderline concentric LVH, normal left ventricular systolic function, and mild tricuspid regurgitation. The left atrium was normal in size and there was no evidence of an atrial septal defect. At the time of this dictation, his myocardial stress test is pending, but if any positive findings are noted an addendum will be entered. As discussed with his nurse, Addis Sánchez and Ann Marie Ochoa, nurse practitioner if stress test is indeed negative, the patient will be readied for discharge to his longterm. He will continue on his psychotropic medications as on admission and follow up with his private medical physician in his home area as well as his psychiatrist. He has been admonished again cigarette smoking, marijuana smoking, and alcohol misuse and abuse. Greater than 35 minutes was spent in the care of this patient today. All questions were answered. Sabrina Larsen MD MTDСергей
--- NOTE | 2019-01-13 08:59 | PN ---
DATE: 01/12/2019 SUBJECTIVE: Case discussed with nursing. The patient is alert, oriented, pacing about his room, somewhat flat in affect, interacts perfunctorily. The patient did undergo a negative stress test and is being sent back to the long term from whence he came. PHYSICAL EXAMINATION: VITAL SIGNS: Blood pressure 110/65, pulse 52, temperature 98, respiratory rate 18. Gagan Ramirez MD/ PhD
--- NOTE | 2019-01-13 14:07 | PN ---
DATE: 01/13/2019 This 43-year-old male was discharged yesterday afternoon upon his insistence after a stress test was performed but results were pending. On review of his stress test results today, he has abnormal myocardial stress test findings. He has a partially reversible distal anterior apical and inferior defect suspicious for ischemia with normal overall left ventricular function and paradoxical septal wall motion. This abnormality was reported to Sara Frey, phone number [phone], extension [phone], his social media content specialist at the detention where he resides. I have told his social media content specialist to immediately contact his primary care physician for further instructions regarding Cardiology evaluation. He will need a cardiac cath and should be kept at low-level activity until he is cleared by Cardiology. This includes no further contact sports, basketball, etc. until this is resolved. Also, social media content specialist was advised for any change in signs and symptoms to send her patient, Mr. Manolo Wells, to the nearest emergency room since he is a resident of [place], [place]. These findings were made to his social media content specialist at 11:15 a.m. on the morning of , 01/13/2019. Sabrina Larsen MD MTDD
== END 2019-01-12 19:00 | disposition home or self-care (01) | DRG 313 ==
LOC: ED 22:09 → ERH 01-10 02:40 → OBSVTOIN 01-10 10:43 → ERH 01-10 13:16 → 3RSO 01-10 15:00
PROVIDERS: ADMIT Internal Medicine; ATTEND Internal Medicine
DX: R07.89 Other chest pain (principal); F20.0 Paranoid schizophrenia; I10 Essential (primary) hypertension; F31.9 Bipolar disorder, unspecified; F41.9 Anxiety disorder, unspecified; F12.90 Cannabis use, unspecified, uncomplicated; J45.909 Unspecified asthma, uncomplicated; F17.210 Nicotine dependence, cigarettes, uncomplicated; G40.909 Epilepsy, unspecified, not intractable, without status epilepticus